=== PATIENT | male | born 1970 | race Caucasian/White ===

== ENCOUNTER 2024-04-11 10:53 | Emergency (ER) | payer MEDICARE, OTHER ==
[~2024-04-11] VITALS: Ht 180.3 cm; Wt 84.4 kg
[2024-04-11] MEDS ORDERED: FLUCONAZOLE100 MG PO (11:08)
[2024-04-11] MEDS ORDERED: OXYCODONE HCL5 MG PO (11:08)
[2024-04-11] MEDS ORDERED: SENNA-DOCUSATE1 EAC1 PO (11:09)
[2024-04-11] MEDS ORDERED: DEXAMETHASONE4 MG PO (11:09)
[2024-04-11] MEDS ORDERED: LIDOCAINE HCL100 ML MT (11:09)
[2024-04-11] MEDS ORDERED: PANTOPRAZOLE SO40 MG PO (11:09)
[2024-04-11] MEDS ORDERED: LANTUS SOL100 UNIT/1 SUB-Q (11:10)
[2024-04-11] MEDS ORDERED: NOVOLOG FL100 UNIT/1 SUB-Q (11:10)
[2024-04-11] MEDS ORDERED: IBUPROFEN200 M1 PO (11:10)
[2024-04-11] MEDS ORDERED: BUPRENORPHINE HC2 MG SL (11:11)
[2024-04-11] MEDS ORDERED: ONDANSETRON ODT4 MG PO (11:11)
[2024-04-11] MEDS ORDERED: PROCHLORPERAZIN10 MG PO (11:12)
[2024-04-11] MEDS ORDERED: TRIAMCINOLONE A15 G1 TOP (11:12)
[2024-04-11] MEDS ORDERED: DOXYCYCLINE HYCLATE 100 MG CAP PO ONE (11:15)
[2024-04-11] MEDS ORDERED: CEPHALEXIN MONOHYDRATE 500 MG CAP PO ONE (11:15)
[2024-04-11 13:06] LABS: BASOPHILS 0.2 % (0-2); EOSINOPHILS 1.1 % (0-6); HEMATOCRIT 41.7 % (35.0-50.0); HEMOGLOBIN 14.2 g/dL (12.0-18.0); LYMPHOCYTES 4.1 % (24-44); MCH 29.4 (27-36); MCV 86.5 fl (81-99); MONOCYTES 9.2 % (0-12); NEUTROPHILS 85.4 % (39-80); PLATELET COUNT 236 K/uL (140-440); RBC 4.82 M/ul (4.3-5.7); RDW 13.6 (10.5-15.0)
[2024-04-11 13:19] LABS: INR 1.07 (0.80-1.30); PROTIME 13.8 Sec (11.2-14.2)
[2024-04-11 13:22] LABS: PARTIAL THROMBOPLASTIN TIME 27.4 Sec (22.9-41.3)
[2024-04-11 13:24] LABS: ALBUMIN 3.2 g/dL (3.4-5.0); ALBUMIN/GLOBULIN RATIO 0.74 (1.1-2.4); ANION GAP 11.7 (7-21); BILIRUBIN, TOTAL 0.7 ng/dL (0.2-1.0); BUN/CREATININE RATIO 15.62 (6.0-28.6); CREATININE, SERUM 0.96 mg/dL (0.70-1.30); POTASSIUM 3.7 mmol/L (3.5-5.1); PROTEIN, TOTAL 7.5 g/dL (6.4-8.2)
[2024-04-11] MEDS ORDERED: APIXABAN 5 MG TAB PO ONE (14:15)
[2024-04-11] MEDS ORDERED: PERCOCET 5-3251 EACH PO (15:53)
[2024-04-11] MEDS ORDERED: ELIQUIS5 MG PO (15:53)
[2024-04-11] MEDS ORDERED: CEPHALEXIN500 MG PO (15:53)
[2024-04-11] MEDS ORDERED: DOXYCYCLINE HY100 MG PO (15:53)
[2024-04-11 16:20] VITALS: BP 123/80
== END 2024-04-11 16:21 | disposition home or self-care (01) ==
LOC: ED 10:53
PROVIDERS: Emergency Medicine
DX: I82.441 Acute embolism and thrombosis of right tibial vein (principal); I82.811 Embolism and thrombosis of superficial veins of right lower extremity; L02.415 Cutaneous abscess of right lower limb; Z79.4 Long term (current) use of insulin; Z79.899 Other long term (current) drug therapy
CPT/HCPCS: 10060; 36415; 80053; 85025; 85610; 85730; 93971; 99284-25; A9270